=== PATIENT | male | born 1945 | race Caucasian/White ===

== ENCOUNTER 2025-10-12 18:52 | Emergency (ER) | payer MEDICARE, SELFPAY ==
[2025-10-12 18:52] VITALS: BP 206/66; PULSE 52; RESP 18; TEMP 36.1; O2SAT 98
--- NOTE | 2025-10-12 19:02 | ED.EYEPROB ---
HPI - Eye Problem General Chief complaint: Eye Problems Stated complaint: eye pain Time Seen by Provider: 10/12/25 19:02 Source: patient and family Mode of arrival: EMS Limitations: no limitations History of Present Illness HPI Narrative: 80 years old white male came to the ED by ambulance from home complaining of diff the upper eyelid irritation for the last few days. Patient denies any trauma, fever, chills, nausea, vomiting, headache. Related Data Allergies Allergy/AdvReac Type Severity Reaction Status Date / Time No Known Allergies Allergy Verified 10/12/25 19:04 Review of Systems Review of Systems: All systems reviewed & are unremarkable except as noted in HPI and below Exam Narrative: General appearance: Well-developed, well-nourished Skin: Normal color Head: Normocephalic, nontraumatic Eyes: Clear conjunctiva, extraocular muscle intact, left upper eyelid edge slightly red, slightly tender to touch, no discharge. redness of the inner side of the left upper eyelid. ENT: Oropharynx normal, ears normal, nose normal Neck: Supple, nontender Chest and respiratory: Airway patent, no respiratory distress, no accessory muscle use Heart: Regular rate/rhythm Abdomen: Soft, nontender, no organomegaly, quiet bowel sounds Vascular: Normal peripheral pulses, normal capillary refill. 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, no gross motor deficit Course Vital Signs Vital signs: Vital Signs Temperature 36.1 C L 10/12/25 18:52 Pulse Rate 52 L 10/12/25 18:52 Respiratory Rate 18 10/12/25 18:52 Blood Pressure 206/66 H 10/12/25 18:52 Pulse Oximetry 98 10/12/25 18:52 Oxygen Delivery Room Air 10/12/25 18:52 Temperature 36.1 C L 10/12/25 18:52 Pulse Rate 52 L 10/12/25 18:52 Respiratory Rate 18 10/12/25 18:52 Blood Pressure 206/66 H 10/12/25 18:52 Pulse Oximetry 98 10/12/25 18:52 Oxygen Delivery Room Air 10/12/25 18:52 MDM Differential Diagnosis Differential Diagnosis: Blepharitis, stye Discharge Plan Discharge Clinical Impression: Blepharitis Patient Disposition: Home Condition: Stable Instructions: Blepharitis (ED) Additional Instructions: Return if symptoms are worsening , call your family physician for appointment, take Tylenol as as needed for aches and pain, continue home medications. Patient Language: Somali Prescriptions: New cephalexin 500 mg capsule 500 mg PO Q12H 7 Days Qty: 14 0RF erythromycin 5 mg/gram (0.5 %) ointment 0.5 inch ophthalmic (eye) QID Qty: 1 0RF erythromycin 5 mg/gram (0.5 %) ointment 0.5 inch LEFT EYE QID Qty: 1 0RF cephalexin 500 mg capsule 500 mg PO Q12H 7 Days Qty: 14 0RF Follow-up/Referrals: UNKNOWN,DOCTOR [Non-Staff]
[2025-10-12] MEDS: ERYTHROMYCIN OPHTH OINTMENT 3.5 GM TUBE 1 APPLIC LEFT EYE (19:21)
[2025-10-12] MEDS: CEPHALEXIN 500 MG CAPSULE PO (19:21)
[2025-10-12 19:49] VITALS: BP 200/68; PULSE 58; RESP 16; O2SAT 97
== END 2025-10-12 19:49 | disposition home or self-care (01) ==
PROVIDERS: Emergency Provider Emergency Medicine; PCP Internal Medicine
DX: H01.004 Unspecified blepharitis left upper eyelid (principal)
CPT/HCPCS: 99283; A9270